=== PATIENT | male | born 1980 | race Caucasian/White ===

== ENCOUNTER → 2021-05-06 12:49 | Outpatient (CLI) | payer BC, SELFPAY ==
--- NOTE | 2021-05-06 | DI.US.S_ITS ---
PROCEDURE: US THYROID INDICATIONS: SWELLING TECHNIQUE: Real-time scanning was performed of the thyroid gland, with image documentation. COMPARISON: None. FINDINGS: Right: Thyroid lobe measures 5.0 x 2.7 x 2.5 cm, and is homogeneous in echotexture. Left: Thyroid lobe measures 5.0 x 2.6 x 2.1 cm, and is homogenous in echotexture. Isthmus: 2.2 mm thick. IMPRESSION: Normal thyroid. Dictated by: Blaine Odom [facility] Interpreted: Miko Egan MD on 05/06/2021 at 13:50 Transcribed by: PIETER on 05/06/2021 at 13:51 Approved by: Raymond Egan M.D. on 05/08/2021 at 7:43
== END ==
PROVIDERS: PCP Family Medicine; Referring Provider Family Medicine; Visit Provider Family Medicine
DX: R22.1 Localized swelling, mass and lump, neck (principal)
CPT/HCPCS: 76536